=== PATIENT | female | born 1960 | race African-American/Black ===

== ENCOUNTER 2017-05-02 13:15 | Emergency (ER) | payer OTHER ==
[~2017-05-02] VITALS: Ht 167.6 cm; Wt 63.5 kg
[2017-05-02] MEDS ORDERED: Levophed 4mg/4mL Inj IV ONE (13:36)
[2017-05-02] MEDS ORDERED: Norco 5mg/325mg tab ORAL ONE (15:15)
--- NOTE | 2017-05-02 15:29 | Emergency Room Report ---
History of Present Illness General Chief Complaint: Chest Pain Source: Patient (JOSE CARLSON M.D.) Present Illness HPI 56-year-old female presents to ED complaining of chest pain. notes chest pain for the last 5 days, left-sided, sharp, nonradiating, 05/09. The patient was given aspirin and nitroglycerin by EMS without relief. I shortness of breath. Denies smoking or drug use. Patient states that she was admitted to [facility] from through Tuesday for chest pain. States the everything was okay and discharged her home. No other aggravating or relieving factors. Denies any other associated symptoms (JOSE CARLSON M.D.) Allergies: Coded Allergies: MEPERIDINE (Verified Allergy, Unknown, 05/02/17) Patient History Past Medical History: none Past Surgical History: none Pertinent Family History: none Social History: Denies: alcohol use, drug use, smoking Now: No Immunizations: UTD Reviewed Nursing Documentation: PMH: Agreed, PSxH: Agreed (JOSE CARLSON M.D.) Nursing Documentation-PMH Hx Seizures: Yes (JOSE CARLSON M.D.) Review of Systems All Other Systems: negative except mentioned in HPI (JOSE CARLSON M.D.) Physical Exam Vital Signs Date Time Temp Pulse Resp B/P Pulse Ox O2 Delivery O2 Flow Rate FiO2 05/02/17 13:09 98.6 86 16 131/84 100 Room Air Sp02 EP Interpretation: reviewed, normal General Appearance: no apparent distress, alert, GCS 15, non-toxic Head: normocephalic, atraumatic Eyes: bilateral eye PERRL, bilateral eye normal inspection ENT: hearing grossly normal, normal pharynx, no angioedema, normal voice Neck: full range of motion, supple/symm/no masses Respiratory: lungs clear, normal breath sounds, speaking full sentences, other - L sided Cardiovascular #1: regular rate, rhythm, no edema Cardiovascular #2: 2+ carotid (R), 2+ carotid (L), 2+ radial (R), 2+ radial (L) , 2+ dorsalis pedis (R), 2+ dorsalis pedis (L) Gastrointestinal: normal bowel sounds, non tender, soft, non-distended, no guarding, no rebound Rectal: deferred Genitourinary: normal inspection, no CVA tenderness Musculoskeletal: back normal, gait/station normal, normal range of motion, non- tender Neurologic: alert, oriented x3, responsive, motor strength/tone normal, sensory intact, speech normal Psychiatric: judgement/insight normal, memory normal, mood/affect normal, no suicidal/homicidal ideation Reflexes: 3+ bicep (R), 3+ bicep (L), 3+ tricep (R), 3+ tricep (L), 3+ knee (R) , 3+ knee (L) Skin: normal color, no rash, warm/dry, well hydrated Lymphatic: no adenopathy (JOSE CARLSON M.D.) Medical Decision Making Diagnostic Impression: Primary Impression: Chest pain Qualified Codes: R07.9 - Chest pain, unspecified ER Course Received signout from Dr Carlson to followup labs - Troponin 0. H&H stable. No leuks. - Mild CK elevation. Very mild serumCr elevation Was given IVF NS hydration Patient endorsed recent admission to outside hospital for "negative workup of chest pain" ECG shows LVH. No ischemia. BP is controlled here. Patient compliant with meds Will DC Close PMD followup (KRISTINA NIELSEN M.D.) EKG Diagnostic Results Rate: normal Rhythm: NSR ST Segments: other - LVH ASA given to the pt in ED: No - given by ems (JOSE CARLSON M.D.) Rate: normal Rhythm: NSR ST Segments: other - LVH ASA given to the pt in ED: No (KRISTINA NIELSEN M.D.) Rhythm Strip Diag. Results EP Interpretation: yes Rhythm: NSR, no PVC's, no ectopy (JOSE CARLSON M.D.) EP Interpretation: yes Rate: 75 Rhythm: NSR (KRISTINA NIELSEN M.D.) Chest X-Ray Diagnostic Results Chest X-Ray Diagnostic Results : Chest X-Ray Ordered: Yes # of Views/Limited/Complete: 1 View Indication: Chest Pain EP Interpretation: Yes Interpretation: no consolidation, no effusion, no pneumothorax, no acute cardiopulmonary disease Impression: No acute disease Interpreting ER Provider: Jose Carlson mD ([place],JOSE M.D.) Last Vital Signs Date Time Temp Pulse Resp B/P Pulse Ox O2 Delivery O2 Flow Rate FiO2 05/02/17 13:09 98.6 86 16 131/84 100 Room Air (JOSE CARLSON M.D.) Status: improved (KRISTINA NIELSEN M.D.) Disposition: HOME, SELF-CARE Referrals: [facility],REFERRING (PCP) JOSE CARLSON M.D. May 02, 2017 15:29 KRISTINA NIELSEN M.D. May 02, 2017 17:04
[2017-05-02 16:04] LABS: BASOPHILS % (AUTO) 1.9 % (0.0-2.0); EOSINOPHILS % (AUTO) 2.9 % (0.0-3.0); MEAN CORPUSCULAR HEMOGLOBIN 31.8 PG (27.0-31.0); MEAN CORPUSCULAR HGB CONC 35.1 G/DL (32.0-36.0); MEAN CORPUSCULAR VOLUME 91 FL (80-99); MEAN PLATELET VOLUME 4.9 FL (6.5-10.1); MONOCYTES % (AUTO) 6.3 % (1.0-10.0); NEUTROPHILS % (AUTO) 41.8 % (45.0-75.0); PLATELET COUNT 307 K/UL (150-450); RED CELL DISTRIBUTION WIDTH 11.7 % (11.6-14.8); WHITE BLOOD COUNT 5.7 K/UL (4.8-10.8)
[2017-05-02 16:18] LABS: ALANINE AMINOTRANSFERASE 8 U/L (3-33); ALBUMIN/GLOBULIN RATIO 1.4 (1.0-2.7); ANION GAP 11 (5-15); ASPARTATE AMINO TRANSFERASE 18 U/L (5-40); CALCIUM 9.6 mg/dL (8.6-10.2); CARBON DIOXIDE 30 mEQ/L (20-30); CHLORIDE 96 mEQ/L (98-107); GLOMERULAR FILTRATION RATE > 60 mL/min (>60); HEMOLYSIS 2; POTASSIUM 3.3 mEQ/L (3.4-4.9); SODIUM 137 mEQ/L (135-145); TOTAL PROTEIN 7.2 g/dL (6.6-8.7); TROPONIN I < 0.30 ng/mL (<=0.30)
[2017-05-02 16:29] LABS: CKMB 2.1 ng/mL (< 3.8)
[2017-05-02 16:38] VITALS: BP 122/64
[2017-05-02 17:46] VITALS: BP 122/64
--- NOTE | 2017-05-03 06:46 | Diagnostic Imaging Report ---
Indications: Chest pain Technique: Portable AP chest Findings: Comparison: None Lungs appear mildly, symmetrically hyperinflated but clear. Heart size, pulmonary vasculature within normal limits. Thoracic aorta calcified and mildly elongated/tortuous. Otherwise, no abnormal mediastinal widening. No pleural abnormality demonstrated. Osteophytes lower thoracic spine. Degenerative changes also suggested in lower cervical spine. IMPRESSION: No evidence of acute cardiopulmonary disease Suggestion of COPD Aortosclerosis and probable chronic hypertensive change Degenerative spondylosis
== END 2017-05-02 17:58 | disposition home or self-care (01) ==
LOC: EDBD 13:15 → EMR 13:48 → CANBEDREQ 16:58 → EMR 17:58
DX: R07.89 Other chest pain (principal); R94.4 Abnormal results of kidney function studies
CPT/HCPCS: 36415; 71010; 80053; 82550; 82553; 83880; 84484; 85025; 93005; 96374